=== PATIENT | male | born 1970 | race Caucasian/White ===

== ENCOUNTER 2017-11-23 12:58 | Emergency (ER) | payer OTHER, MEDICAID ==
--- NOTE | 2017-11-23 14:35 | EDPHY ---
H & P Time Seen by Provider: 11/23/17 14:14 HPI/ROS: CHIEF COMPLAINT: Abdominal pain HISTORY OF PRESENT ILLNESS: Patient is a 47-year-old homeless male who presents emergency department left lower quadrant abdominal pain. Patient states his pain is been present for the past 2-3 weeks. His pain radiates to his left flank. He has had no dysuria or frequency. Patient reports subjective fever and chills. The patient saw his primary care physician and was treated with 2 weeks of amoxicillin which did not result symptoms. Patient was concerned because his mother was diagnosed with C diff. He has had nonbloody diarrhea. No previous history of C diff. REVIEW OF SYSTEMS: My complete review of systems is negative except as mentioned in the HPI. Past Medical/Surgical History: Includes RSD, bipolar disorder, coronary artery disease, emphysema, hypothyroidism, TIA Social history: The patient is homeless. The patient smokes daily. Smoking Status: Heavy smoker Physical Exam: 36.8, 135/94, 90, 16, 96% on room air GENERAL: No acute distress, alert. HEENT: Eyes normal to inspection, normal pharynx, no signs of dehydration. NECK: No thyromegaly, no lymphadenopathy, supple. RESPIRATORY: Clear to auscultation bilaterally, no rales, rhonchi or wheezing. CVS: Regular rate and rhythm, no rubs, murmurs, or gallops. ABDOMEN: Soft, mild left lower quadrant tenderness palpation with no rebound or guarding, nondistended, no organomegaly. BACK: Normal to inspection, no CVA tenderness. SKIN: Normal color, no rash, warm, dry. No pallor. EXTREMITIES: No pedal edema, no calf tenderness, no Homans sign or cords, no joint swelling. NEURO/PSYCH: Alert and oriented x3, normal mood and affect, normal motor sensory exam. Constitutional: Initial Vital Signs Temperature (C) 36.8 C 11/23/17 13:07 Heart Rate 90 11/23/17 13:07 Respiratory Rate 16 11/23/17 13:07 Blood Pressure 135/94 H 11/23/17 13:07 O2 Sat (%) 96 11/23/17 13:07 O2 Delivery Mode Room Air Allergies/Adverse Reactions: clonazepam [From Klonopin] Allergy (Verified 11/23/17 13:14) fluticasone [From Flonase] Allergy (Verified 11/23/17 13:14) Home Medications: Medication Instructions Recorded AMOXICILLIN 11/23/17 Cyclobenzaprine 11/23/17 Depakote 11/23/17 Levothyroxine 11/23/17 OLANZapine 11/23/17 Omeprazole 11/23/17 SUMAtriptan 11/23/17 Medical Decision Making - Diagnostics Imaging Results: Imaging Impressions Abdomen/Pelvis CT 11/23/17 14:31 Impression: No acute abdominopelvic process. Findings and recommendations discussed with LEMUEL RAI at 1550 hour, . ED Course/Re-evaluation: In the emergency department I discussed possible etiologies with the patient. I answered all his questions. IV was placed. Laboratory studies were obtained. Patient given normal saline 1 L IV for hydration. Patient's CBC, chemistry and urine were unremarkable. LFTs were normal. CT of the abdomen pelvis: Please refer the dictated report. No acute disease noted. Discussed the results with the patient. On recheck he was doing well. He was sitting in the bed comfortably. Patient will take Tylenol for his discomfort. He is given warnings prior to leaving. He will return with worsening symptoms. Differential Diagnosis: My differential includes but is not limited to colitis, diverticulitis, small- bowel obstruction, perforation, kidney stone, urinary tract infection, pyelonephritis, C diff - Data Points Laboratory Results: Laboratory Results 11/23/17 15:00 11/23/17 15:00 11/23/17 11/23/17 11/23/17 15:00 15:00 15:00 WBC 4.31 10^3/uL 10^3/uL (3.80-9.50) RBC 3.82 10^6/uL L 10^6/uL (4.40-6.38) Hgb 13.7 g/dL g/dL (13.7-17.5) Hct 39.5 % L % (40.0-51.0) MCV 103.4 fL H fL (81.5-99.8) MCH 35.9 pg H pg (27.9-34.1) MCHC 34.7 g/dL g/dL (32.4-36.7) RDW 13.9 % % (11.5-15.2) Plt Count 142 10^3/uL L 10^3/uL (150-400) MPV 10.1 fL fL (8.7-11.7) Neut % (Auto) 36.8 % L % (39.3-74.2) Lymph % (Auto) 47.3 % H % (15.0-45.0) [place] % (Auto) 9.3 % % (4.5-13.0) Eos % (Auto) 4.2 % % (0.6-7.6) Baso % (Auto) 1.9 % H % (0.3-1.7) Nucleat RBC Rel Count 0.0 % % (0.0-0.2) Absolute Neuts (auto) 1.59 10^3/uL L 10^3/uL (1.70-6.50) Absolute Lymphs (auto) 2.04 10^3/uL 10^3/uL (1.00-3.00) Absolute Monos (auto) 0.40 10^3/uL 10^3/uL (0.30-0.80) Absolute Eos (auto) 0.18 10^3/uL 10^3/uL (0.03-0.40) Absolute Basos (auto) 0.08 10^3/uL 10^3/uL (0.02-0.10) Absolute Nucleated RBC 0.00 10^3/uL 10^3/uL (0-0.01) Immature Gran % 0.5 % % (0.0-1.1) Immature Gran # 0.02 10^3/uL 10^3/uL (0.00-0.10) Sodium 140 mEq/L mEq/L (135-145) Potassium 4.2 mEq/L mEq/L (3.3-5.0) Chloride 104 mEq/L mEq/L (97-110) Carbon Dioxide 28 mEq/l mEq/l (22-31) Anion Gap 8 mEq/L mEq/L (8-16) BUN 23 mg/dL mg/dL (7-23) Creatinine 0.8 mg/dL mg/dL (0.7-1.3) Estimated GFR > 60 Glucose 93 mg/dL mg/dL (70-100) Calcium 9.0 mg/dL mg/dL (8.5-10.4) Total Bilirubin 0.3 mg/dL mg/dL (0.1-1.4) Conjugated Bilirubin 0.1 mg/dL mg/dL (0.0-0.5) Unconjugated Bilirubin 0.2 mg/dL mg/dL (0.0-1.1) AST 25 IU/L IU/L (17-59) ALT 20 IU/L L IU/L (21-72) Alkaline Phosphatase 54 IU/L IU/L (38-126) Total Protein 6.4 g/dL g/dL (6.3-8.2) Albumin 3.9 g/dL g/dL (3.5-5.0) Lipase 105 IU/L IU/L (23-300) Urine Color YELLOW Urine Appearance HAZY Urine pH 7.0 (5.0-7.5) Ur Specific [place] 1.026 (1.002-1.030) Urine Protein NEGATIVE (NEGATIVE) Urine Ketones TRACE H (NEGATIVE) Urine Blood NEGATIVE (NEGATIVE) Urine Nitrate NEGATIVE (NEGATIVE) Urine Bilirubin NEGATIVE (NEGATIVE) Urine Urobilinogen NEGATIVE EU EU (0.2-1.0) Ur Leukocyte Esterase NEGATIVE (NEGATIVE) Urine RBC 1-3 /hpf /hpf (0-3) Urine WBC 1-3 /hpf /hpf (0-3) Ur Epithelial Cells TRACE /lpf /lpf (NONE-1+) Urine Mucus TRACE /lpf /lpf (NONE-1+) Urine Glucose NEGATIVE (NEGATIVE) Medications Given: Discontinued Medications Sodium Chloride (Ns) 1,000 mls @ 0 mls/hr IV EDNOW ONE; Wide Open PRN Reason: Protocol Stop: 11/23/17 14:32 Last Admin: 11/23/17 15:00 Dose: 1,000 mls Departure - Departure Disposition: Home, Routine, Self-Care Clinical Impression: Abdominal pain Qualifiers: Abdominal location: left lower quadrant Qualified Code(s): R10.32 - Left lower quadrant pain Condition: Good Instructions: Acute Abdominal Pain (ED) Additional Instructions: Return with increasing abdominal pain, fever, vomiting or any other concerns. This CT of your abdomen and pelvis was unremarkable. Laboratory studies were unremarkable. Referrals: [facility],. [Clinic] - 2-3 days, if not improved
[2017-11-23] MEDS: NS 1,000 ML IV ONE (15:00)
[2017-11-23 15:13] LABS: PLATELET COUNT 142 10^3/uL (150-400)
[2017-11-23 16:05] VITALS: BP 140/97
== END 2017-11-23 16:12 | disposition home or self-care (01) ==
DX: R10.32 Left lower quadrant pain (principal); Z59.0 Homelessness; E86.9 Volume depletion, unspecified

== ENCOUNTER 2017-12-04 16:58 | Emergency (ER) | payer OTHER, MEDICAID ==
--- NOTE | 2017-12-04 17:02 | EDPHY ---
H & P Time Seen by Provider: 12/04/17 17:00 HPI/ROS: CHIEF COMPLAINT: Intoxication HISTORY OF PRESENT ILLNESS: Patient is a 47-year-old man who was found lying in the grass altered. He admits to smoking marijuana and drinking alcohol. He has no pain or complaints at this time other than being woken up. He does not remember the last several hours. No evidence of trauma. He does have some foam in his mouth and states that he has been eating "whoppers". Severity: Moderate Modifying factors: None REVIEW OF SYSTEMS: Constitutional: denies: chills, fever, recent illness, recent injury EENTM: denies: blurred vision, double vision, nose congestion Respiratory: denies: cough, shortness of breath Cardiac: denies: chest pain, irregular heart rate, lightheadedness, palpitations Gastrointestinal/Abdominal: denies: abdominal pain, diarrhea, nausea, vomiting, blood streaked stools Genitourinary: denies: dysuria, frequency, hematuria, pain Musculoskeletal: denies: joint pain, muscle pain Skin: denies: lesions, rash, jaundice, bruising Neurological: Amnesia, denies: headache, numbness, paresthesia, tingling, dizziness, weakness Hematologic/Lymphatic: denies: blood clots, easy bleeding, easy bruising Immunologic/allergic: denies: HIV/AIDS, transplant 10 systems reviewed and negative except as noted EXAM: GENERAL: Well-appearing, well-nourished and in no acute distress. HEAD: Atraumatic, normocephalic. EYES: Pupils equal round and reactive to light, extraocular movements intact, sclera anicteric, conjunctiva are normal. ENT: Small amount of from and mouth, easily wiped away. TMs normal, nares patent, oropharynx clear without exudates. Moist mucous membranes. NECK: Normal range of motion, supple without lymphadenopathy or JVD. LUNGS: Breath sounds clear to auscultation bilaterally and equal. No wheezes rales or rhonchi. HEART: Regular rate and rhythm without murmurs, rubs or gallops. ABDOMEN: Soft, nontender, normoactive bowel sounds. No guarding, no rebound. No masses appreciated. BACK: No CVA tenderness, no spinal tenderness, step-offs or deformities EXTREMITIES: Normal range of motion, no pitting or edema. No clubbing or cyanosis. NEUROLOGICAL: Cranial nerves II through XII grossly intact. Normal speech, normal gait. 5/5 strength, normal movement in all extremities, normal sensation , normal reflexes PSYCH: Appears intoxicated, slightly confused, answers most questions appropriately SKIN: Warm, dry, normal turgor, no visible rashes or lesions. Source: Patient, EMS Exam Limitations: Intoxication - Medical/Surgical History Hx Asthma: Yes Hx Chronic Respiratory Disease: Yes Hx Diabetes: Yes Hx Cardiac Disease: Yes Hx Renal Disease: Yes Hx Cirrhosis: No Hx Alcoholism: No Hx HIV/AIDS: No Hx Splenectomy or Spleen Trauma: No Other PMH: RSD, bipolar, [place] 2015, emphysema, hypothryroid, TIA 10/2017 - Family History Significant Family History: No pertinent family hx - Social History Smoking Status: Heavy smoker Alcohol Use: Heavy Drug Use: Marijuana, Other Constitutional: Initial Vital Signs Temperature (C) 36.5 C 12/04/17 17:06 Heart Rate 97 12/04/17 17:06 Respiratory Rate 18 12/04/17 17:06 Blood Pressure 128/86 H 12/04/17 17:06 O2 Sat (%) 94 12/04/17 17:06 O2 Delivery Mode Room Air Allergies/Adverse Reactions: clonazepam [From Klonopin] Allergy (Verified 11/23/17 13:14) fluticasone [From Flonase] Allergy (Verified 11/23/17 13:14) Home Medications: Medication Instructions Recorded AMOXICILLIN 11/23/17 Cyclobenzaprine 11/23/17 Depakote 11/23/17 Levothyroxine 11/23/17 OLANZapine 11/23/17 Omeprazole 11/23/17 SUMAtriptan 11/23/17 Medical Decision Making ED Course/Re-evaluation: Patient's alcohol Breathalyzer is only 0.089. He denies other ingestion besides marijuana. We will observe and hydrate. The patient remains awake and alert. He is asymptomatic. He is stable ambulating. He does not have any pain and does not feel ill. He does appear intoxicated her high. He is eager to go home and return to his intermediate. Will discharge him at this time. We discussed indications for returning. Differential Diagnosis: Partial list of the Differential diagnosis considered include but were not limited to; polysubstance abuse, head injury and although unlikely based on the history and physical exam, I also considered infection tumor, seizure, withdrawal. I discussed these differential diagnoses and the plan with the patient as well as the usual and expected course. The patient understands that the diagnosis is provisional and that in medicine we are not always correct and that further workup is often warranted. Usual and customary warnings were given. All of the patient's questions were answered. The patient was instructed to return to the emergency department should the symptoms at all worsen or return, otherwise to followup with the physician as we discussed. - Data Points Medications Given: Discontinued Medications Chlordiazepoxide (Librium 25 Mg Prepack#6) 1 btl TAKEHOME EDNOW ONE Stop: 12/04/17 18:06 Last Admin: 12/04/17 18:08 Dose: 1 btl Departure - Departure Disposition: Home, Routine, Self-Care Clinical Impression: Polysubstance abuse Condition: Fair Instructions: Chlordiazepoxide (By mouth), Polysubstance Abuse (ED) Referrals: NONE *PRIMARY CARE P,. [Primary Care Provider] - As per Instructions [facility],. [Clinic] - As per Instructions
[2017-12-04 17:08] VITALS: BP 128/86
[2017-12-04] MEDS ORDERED: CHLORDIAZEPOXIDE 25MG PREPK#6 BTL TAKEHOME ONE ×2 (18:03→18:05)
== END 2017-12-04 18:27 | disposition home or self-care (01) ==
LOC: EDUNIT# → EDBD
DX: F10.129 Alcohol abuse with intoxication, unspecified (principal); F17.200 Nicotine dependence, unspecified, uncomplicated

== ENCOUNTER 2017-12-11 11:04 | Inpatient (IN) | payer OTHER, MEDICAID ==
--- NOTE | 2017-12-11 11:19 | EDPHY ---
H & P Time Seen by Provider: 12/11/17 11:08 HPI/ROS: CHIEF COMPLAINT: Suicidal ideation HISTORY OF PRESENT ILLNESS: Brought on a mental health hold. Was placed on a hold prior to arrival for suicidal ideation wanting to kill himself. Patient says he still has depression and suicidal ideation. Denies overdose or self injury. REVIEW OF SYSTEMS: Eye: no change in vision ENT: no sore throat Cardiac: no chest pain or syncope Pulmonary: no cough or SOB Abdomen: Chronic abdominal pain for the last 2 months, worse with eating. No previous surgeries. Musculoskeletal: no back pain Skin: no rash Neuro: no headache Constitutional: no fever : no urinary symptoms A comprehensive 10 point review of systems is otherwise negative aside from elements mentioned in the history of present illness. PAST MEDICAL HISTORY: Thyroid, bipolar Social history: Denies alcohol, is a chronic tobacco smoker. General Appearance: Alert and conversant, cooperative. Eyes: No scleral icterus. ENT, Mouth: Normal mucous membranes. Respiratory: Normal respiratory effort, breath sounds equal, lungs are clear to auscultation. Cardiovascular: Regular rate and rhythm. Gastrointestinal: Abdomen is soft and non tender. No hernia appreciated, normal male , no rebound or guarding. Neurological: Alert, face symmetric, normal motor and sensory in extremities. Skin: Warm and dry, no rashes. No laceration or abrasions. Musculoskeletal: No peripheral edema. Psychiatric: Depressed affect, suicidal ideation. Emergency Department course/MDM: On a mental health hold. Screening labs to include CBC chemistry lipase and LFTs. Ethanol and drug screen. TSH, Depakote level, aspirin and Tylenol. Lipase and LFTs normal, amphetamine positive. Tylenol aspirin and Depakote negative. 1318: The patient is accepted at [facility] for inpatient psychiatric hospital bed not available at this facility, in stable condition; accepting physician is Dr. Chano Christine. 1453: Discussed with Dr. Herrmann. Will admit to hospital with abdominal pain and elevated TSH for medical stabilization prior to psychiatric admission. The ICU because he is on a mental health hold. Smoking Status: Heavy smoker Constitutional: Initial Vital Signs Temperature (C) 36.6 C 12/11/17 11:04 Heart Rate 66 12/11/17 11:04 Respiratory Rate 14 12/11/17 11:04 Blood Pressure 135/84 H 12/11/17 11:04 O2 Sat (%) 96 12/11/17 11:04 O2 Delivery Mode Room Air Allergies/Adverse Reactions: clonazepam [From Klonopin] Allergy (Verified 12/11/17 14:03) MOOD CHANGE fluticasone [From Flonase] Allergy (Verified 12/11/17 14:03) SWELLING Home Medications: Medication Instructions Recorded Unobtainable 12/11/17 Medical Decision Making Differential Diagnosis: Differential for abdominal pain considered including but not limited to bowel obstruction, appendicitis, diverticulitis, abscess, pancreatitis or hepatitis. - Data Points Laboratory Results: Laboratory Results 12/11/17 11:25 12/11/17 11:25 12/11/17 12/11/17 12/11/17 11:25 11:25 11:15 WBC 7.66 10^3/uL 10^3/uL (3.80-9.50) RBC 3.89 10^6/uL L 10^6/uL (4.40-6.38) Hgb 14.0 g/dL g/dL (13.7-17.5) Hct 40.3 % % (40.0-51.0) MCV 103.6 fL H fL (81.5-99.8) MCH 36.0 pg H pg (27.9-34.1) MCHC 34.7 g/dL g/dL (32.4-36.7) RDW 14.5 % % (11.5-15.2) Plt Count 208 10^3/uL 10^3/uL (150-400) MPV 9.7 fL fL (8.7-11.7) Neut % (Auto) 73.0 % % (39.3-74.2) Lymph % (Auto) 18.0 % % (15.0-45.0) [place] % (Auto) 5.7 % % (4.5-13.0) Eos % (Auto) 2.2 % % (0.6-7.6) Baso % (Auto) 0.8 % % (0.3-1.7) Nucleat RBC Rel Count 0.0 % % (0.0-0.2) Absolute Neuts (auto) 5.59 10^3/uL 10^3/uL (1.70-6.50) Absolute Lymphs (auto) 1.38 10^3/uL 10^3/uL (1.00-3.00) Absolute Monos (auto) 0.44 10^3/uL 10^3/uL (0.30-0.80) Absolute Eos (auto) 0.17 10^3/uL 10^3/uL (0.03-0.40) Absolute Basos (auto) 0.06 10^3/uL 10^3/uL (0.02-0.10) Absolute Nucleated RBC 0.00 10^3/uL 10^3/uL (0-0.01) Immature Gran % 0.3 % % (0.0-1.1) Immature Gran # 0.02 10^3/uL 10^3/uL (0.00-0.10) Sodium 138 mEq/L mEq/L (135-145) Potassium 4.5 mEq/L mEq/L (3.3-5.0) Chloride 106 mEq/L mEq/L (97-110) Carbon Dioxide 27 mEq/l mEq/l (22-31) Anion Gap 5 mEq/L L mEq/L (8-16) BUN 14 mg/dL mg/dL (7-23) Creatinine 0.8 mg/dL mg/dL (0.7-1.3) Estimated GFR > 60 Glucose 86 mg/dL mg/dL (70-100) Calcium 9.1 mg/dL mg/dL (8.5-10.4) Total Bilirubin 0.5 mg/dL mg/dL (0.1-1.4) Conjugated Bilirubin 0.1 mg/dL mg/dL (0.0-0.5) Unconjugated Bilirubin 0.4 mg/dL mg/dL (0.0-1.1) AST 31 IU/L IU/L (17-59) ALT 29 IU/L IU/L (21-72) Alkaline Phosphatase 46 IU/L IU/L (38-126) Total Protein 6.4 g/dL g/dL (6.3-8.2) Albumin 3.9 g/dL g/dL (3.5-5.0) Lipase 120 IU/L IU/L (23-300) TSH 120.000 uIU/mL H uIU/mL (0.465-4.680) Salicylates < 1.0 mg/dL L mg/dL (2.0-20.0) Urine Opiates Screen NEGATIVE (NEGATIVE) Acetaminophen < 10 mcg/mL L mcg/mL (10-30) Urine Barbiturates NEGATIVE (NEGATIVE) Valproic Acid < 10.0 mcg/mL L mcg/mL (50.0-150.0) Ur Phencyclidine Scrn NEGATIVE (NEGATIVE) Ur Amphetamine Screen NON-NEGATIVE H (NEGATIVE) U Benzodiazepines Scrn NEGATIVE (NEGATIVE) Urine Cocaine Screen NEGATIVE (NEGATIVE) U Marijuana (THC) Screen NON-NEGATIVE H (NEGATIVE) Ethyl Alcohol < 10 mg/dL mg/dL (0-10) Medications Given: Discontinued Medications Nicotine (Nicoderm Cq) 21 mg TD EDNOW ONE Stop: 12/11/17 11:21 Last Admin: 12/11/17 12:41 Dose: 21 mg Departure - Departure Disposition: [facility] In[facility] Acute Clinical Impression: Suicidal ideation Bipolar disorder Qualifiers: Active/Remission status: currently active Current bipolar episode type: depressed Current episode severity: severe Psychotic features: without psychotic features Qualified Code(s): F31.4 - Bipolar disorder, current episode depressed, severe, without psychotic features Abdominal pain Qualifiers: Abdominal location: generalized Qualified Code(s): R10.84 - Generalized abdominal pain Condition: Good
[2017-12-11] MEDS ORDERED: NICOTINE 21 MG/24 HR PATCH TD ONE (11:20)
[2017-12-11 11:31] LABS: PLATELET COUNT 208 10^3/uL (150-400)
--- NOTE | 2017-12-11 14:20 | ASMTTCLDSP ---
[facility] Discharge Disposition Disposition: Answers: Admit Discharge Concerns/Recommendations: Notes: In consultation with [facility] ED physician, Rell Pizano MD and on-call psychiatrist, Chano Christine MD, both concurred that pt appears to meet 27-65 criteria requiring psychiatric hospitalization as pt appears to be at risk of harm to self due to a mental illness condition. Pt was given the 3N prohibited belongings list while in the ED. For inpatient Chano Christine MD admission, the following psychiatrist agreed to accept patient for admission to [facility] ([facility]): Type of Hold: Answers: M1/72-hour Hold Hold initiated by: Answers: Police Date Signed: 12/11/2017 02:20 PM Electronically Signed By:Socorro Dawson
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
[2017-12-11] MEDS ORDERED: ZOLPIDEM TARTRATE 5 MG TAB PO PRN (14:45)
[2017-12-11] MEDS ORDERED: LORazepam 2 MG/ML INJ IVP PRN (15:09)
[2017-12-11] MEDS ORDERED: FLUMAZENIL 0.5 MG/5 ML MDV IVP PRN (15:09)
--- NOTE | 2017-12-11 15:09 | PDGENHP ---
History and Physical History and Physical: CC: Suicidal ideation HISTORY: This patient was brought in by police due to suicidal ideation. He has a long history of bipolar disorder and lately has been very depressed and has strong suicidal ideation. He expresses intent but does not yet have a plan. Patient says he has been off of his medicines for bipolar for approximately 1 month. He says he has been unable to get medicine though he has not asked for medicine here in the ER on his last 2 visits and has not sought care at a local clinic. He tells me he was taking Depakote and olanzapine doses uncertain and possibly other medicines. He does drink up to a gal of vodka a day and drinks every day, last drink yesterday. He uses some marijuana denies use of other street drugs, though notably he shows up positive for amphetamines here. Denies any IV drug use In addition the patient says he has been hypothyroid for most of his life and ran out of thyroid medicine 2-3 months ago. Again when asked why he is not taking it now he says because he has not been able to get any. Notably this is his 3rd visit here to the ER in the last 3 weeks. The patient admits to feeling very tired weak sleepy cold and has diffuse abdominal pain. He says he is not eating but not vomiting. He has not noticed any bleeding. 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 Hypothyroidism FAMILY MEDICAL HISTORY: States mother is living in a local nursing facility does not know her condition SOCIAL HISTORY: Homeless, drinking heavily daily, heavy smoker Uses marijuana regularly Denies use of street drugs but his urine drug screen here suggest possibly otherwise MEDICATIONS: Waiting on pharmacy reconciliation of medicine list but the patient basically has run out of all of his medicines and not currently taking any PHYSICAL EXAMINATION: Vital Signs: Normal without fever, heart rate is 66 Executive Manager: Examination: General: Lying on a hospital gurney on his side, sleeping, with the she pulled up over his head, once I call his name he is alert, oriented Psychologic: Patient is calm, cooperative, though does not like to make eye contact, depressed flat affect, no current signs of hallucinations that he shows , does not have pressured speech or bizarre thought content in our current discussion Neurologic: Cranial nerves good, normal speech/language, 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, no focal weakness, no tremor Skin: warm, dry, good color, no rash, no signs of IV drug use HEENT: normal Neck: no mass or jvd Resps: relaxed Lungs: clear breath sounds Heart: regular, no murmur Abdomen: soft, nondistended, nontender, +BS, no mass Upper Extremities: normal Lower Extremities: no edema, warm No Bleeding or bruising IV site: looks normal LABORATORY DATA: TSH greater than 120, I have ordered T3 and T4 which are pending The rest of a comprehensive metabolic panels unremarkable CBC is remarkable for macrocytosis without anemia RADIOLOGY STUDIES: None so far yet 12 LEAD EKG: None so far yet ASSESSMENT: * suicidal ideation with intent in the setting of uncontrolled mental health and medical issues in a homeless man who is alcoholic * bipolar disorder currently with market depressive affect, no signs of thomas or psychosis at the moment; has been off meds for a month or more * hypothyroidism with unmeasurable a high TSH * heavy alcohol use daily up to a gal of vodka; patient expresses history of a sober period up till 4 months ago and wishes at this time to become sober again * suspected methamphetamine use based on urine tox screen though the patient denies this at present * abdominal pain and tenderness likely related to alcohol use but with normal lipase; consider gastritis, other etiologies possible * myocardial infarction reported by patient treated at [facility] in [place] less than 2 years ago * reported history of multiple TIAs The patient is not delirious or psychotic at this time, however some of the details of his history really require further investigation to clarify. Particularly his heart and TIA history as well as whether he is using methamphetamine. If he truly has coronary disease with MT and TIAs, and drinks as heavily as he states, he is at very high risk for complications with institution of thyroid therapy as well as detoxing from alcohol, which is the patient's wish. PLANS: * Of canceled plans for transfer the patient to mental health unit and will admit to inpatient care here * Admission to ICU on M1 hold * Alcohol withdrawal protocol * Begin treatment with levothyroxine at low dose 50 mcg daily and increase over time as tolerated cardiac bolanos * Will try to get records from hospital in [place] where he is treated for his heart disease and TIAs * Thiamine replacement therapy * Will need definitive assessment and therapy for suicidal ideation and untreated depressive phase of bipolar disorder with history of thomas I have reviewed the patient's case in detail with Dr. Rell montelongo I have reviewed the patient's past medical records as part of this assessment, including previous ER visit records here including physicians notes and lab data
[2017-12-11] MEDS: ONDANSETRON 4 MG/2 ML VIAL IVP PRN ×2 (17:01→20:58)
[2017-12-11] MEDS: LEVOTHYROXINE 50 MCG TAB PO SCH (17:02)
[2017-12-11] MEDS: THIAMINE HCL 100 MG TAB PO SCH ×2 (18:32→20:59)
[2017-12-11] MEDS: LORazepam 1 MG TAB PO PRN (20:59)
[2017-12-11] MEDS: FAMOTIDINE 20 MG TAB PO SCH (20:59)
[2017-12-11] MEDS ORDERED: MELATONIN 3 MG TAB PO SCH (21:00)
[2017-12-12] MEDS: ACETAMINOPHEN 325 MG TAB PO PRN ×3 (01:59→16:50)
[2017-12-12] MEDS: LORazepam 1 MG TAB PO PRN (01:59)
[2017-12-12] MEDS ORDERED: MULTIVITAMINS 1 EACH TAB PO SCH (09:00)
[2017-12-12] MEDS ORDERED: ENOXAPARIN 40 MG/0.4 ML SYR SC SCH (09:00)
[2017-12-12] MEDS ORDERED: NICOTINE 21 MG/24 HR PATCH TD SCH (09:00)
--- NOTE | 2017-12-12 09:19 | ASMTLACE ---
FREDDY Acuity / Level of Answers: Yes Care: Did the patient have an inpatient admission? Comorbidities - select Answers: Cerebrovascular disease all that apply (CVA, TIA, aneurysms, vasc ular dementia) Chronic pulmonary disease Previous myocardial infarction Other Notes: Hypothyroid # of Emergency department Answers: 3-4 visits in the last 6 months Social determinants Answers: History of substance abuse (ETOH, street drugs, prescription drugs, etc.) Homelessness (street, senior living) Mental health diagnosis (anxiety, depression, pers onality disorders, etc.) Score: 20 Date Signed: 12/12/2017 09:18 AM Electronically Signed By:Raine Gamez
[2017-12-12] MEDS: THIAMINE HCL 100 MG TAB PO SCH (09:40)
[2017-12-12] MEDS: FAMOTIDINE 20 MG TAB PO SCH (09:40)
--- NOTE | 2017-12-12 10:04 | PDMN ---
Medical Necessity Medical necessity: Pt on M1 Hold, meets IP criteria; est los >2 mn for eval/tx of suicidal ideation w/intent in the setting of uncontrolled mental health & medical issues; admit to ICU for close monitoring, safety, CIWA protocol & med management; hx bipolar disorder, IN, TIAs, COPD, hypothyroidism, homelessness, alcoholism & suspected meth use; per H&P & order 12/11/17
[2017-12-12] MEDS: LEVOTHYROXINE 50 MCG TAB PO SCH (12:23)
[2017-12-12] MEDS ORDERED: PNEUMOCOCCAL 0.5ML VACCINE VIAL IM ONE (13:00)
[2017-12-12 16:53] VITALS: BP 125/89
--- NOTE | 2017-12-12 17:05 | ASMTDCNOTE ---
Case Management Discharge Discharge Order Complete? Answers: Yes Patient to Obtain Answers: Other Notes: [facility] Behavior [facility] Medications Transportation Arranged Answers: [facility] will Pick (Date 12/12/2017 07:00 PM & Time) EMTALA Complete Answers: Yes Case Management Transport Answers: Yes Form Complete Faxed Final Orders Answers: No Notes: Originals sent w/patien t Discharge Comments Notes: Patient has been discharged to [facility] Behavior th Date Signed: 12/12/2017 05:05 PM Electronically Signed By:Kaylyn Curtis LCSW
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
--- NOTE | 2017-12-12 20:14 | PDDCSUM ---
Discharge Summary Discharge Summary: Date of Admission: 12/11/2017 Date of Discharge: 12/12/2017 Disposition: inpatient behavioral health at [facility] Consultants: psychiatry Procedures: none Discharge Diagnoses: 1. Suicidal ideation 2. Severe hypothyroidism 3. Bipolar d/o, depression 4. EtOH abuse 5. Possible amphetamine use 6. Homelessness 7. Reported h/o CAD and TIAs Brief Hospital Course by Problem: 1. Suicidal ideation: M1 hold placed in ED. No plan or attempt. Discharge to inpatient psych after medically stabilized. 2. Severe hypothyroidism: TSH>120, free T4 and T3 low. He was previously on 150mcg daily but stopped taking his medications. Certainly contributing to his depression. Started on 50mcg synthroid daily (not weight based given his cardiac history). Plan to increase to 75mcg in 2 weeks then 100mcg in 4 weeks and recheck thyroid studies in 6 weeks. 3. Bipolar disorder: Has been off his depakote and olanzapine for at least several weeks; he was unable to refill these. Very flat affect. He was not manic. Defer restarting to psych. 4. EtOH abuse: Was not in withdrawal. 5. Utox + for amphetamine. He denied using. 6. Homelessness: Recent development. Was living with mother but now she is in [facility]. 7. Reported CAD, TIAs: Do not have these records. He reports IA 2 years ago treated at [facility] but denies getting any coronary stenting. I restarted his aspirin and atorvastatin which he reports previously being on. Medications: Please refer to EMR for complete list. Additions this hospitalization include aspirin and atorvastatin. Follow Up Plan: 1. Discharged to inpatient psychiatry 2. Increase levothyroxine from 50 to 75mcg in 2 weeks, then to 100mcg in 4 weeks and recheck thyroid studies in 6 weeks. 2. Recommend re-establishing with PCP so he can get refills on thyroid medications and statin/aspirin Physical Exam: Vitals reviewed and stable with no significant bradycardia. Alert and oriented. Very flat affect. RRR on cardiac exam, lungs clear, no edema , abdomen soft and non-tender. Non-focal neurologic exam.
[2017-12-13] MEDS ORDERED: ASPIRIN EC 81 MG TAB PO SCH (09:00)
[2017-12-13] MEDS ORDERED: ATORVASTATIN CALCIUM 40 MG TAB PO SCH (09:00)
== END 2017-12-12 20:47 | DRG 880 ==
LOC: EDUNIT# → EEVIPCON 14:42 → F2N 16:07
PROVIDERS: ADMIT Internal Medicine; ATTEND Internal Medicine
DX: R45.851 Suicidal ideations (principal); F31.9 Bipolar disorder, unspecified; E03.9 Hypothyroidism, unspecified; F10.239 Alcohol dependence with withdrawal, unspecified; F15.10 Other stimulant abuse, uncomplicated; I25.10 Atherosclerotic heart disease of native coronary artery without angina pectoris; I25.2 Old myocardial infarction; F17.210 Nicotine dependence, cigarettes, uncomplicated; Z59.0 Homelessness; Z86.73 Personal history of transient ischemic attack (TIA), and cerebral infarction without residual deficits
CPT/HCPCS: 80305; 84481-90; G0008; G0009; G0480; J1650; J2060; J2405

== ENCOUNTER 2017-12-12 21:04 | Inpatient (IN) | payer OTHER, MEDICAID ==
[2017-12-12] MEDS ORDERED: NICOTINE POLACRILEX 2 MG GUM B PRN (22:00)
[2017-12-12] MEDS ORDERED: MAGNESIUM HYDROXIDE 30 ML UDCUP PO PRN (22:00)
[2017-12-12] MEDS ORDERED: LORazepam 0.5 MG TAB PO PRN (22:00)
[2017-12-12] MEDS ORDERED: MAG HYDROX/AL HYDROX/SIMETH 30 ML UDCUP PO PRN (22:00)
[2017-12-12] MEDS ORDERED: MELATONIN 3 MG TAB PO PRN (22:17)
[2017-12-12] MEDS ORDERED: OLANZapine 5 MG TAB PO PRN (22:21)
[2017-12-13] MEDS: ACETAMINOPHEN 325 MG TAB PO PRN ×3 (00:51→18:29)
[2017-12-13] MEDS: LEVOTHYROXINE 50 MCG TAB PO SCH (06:04)
[2017-12-13] MEDS: NICOTINE 21 MG/24 HR PATCH TD SCH (08:41)
[2017-12-13] MEDS: MULTIVITAMINS 1 EACH TAB PO SCH (08:41)
[2017-12-13] MEDS: ATORVASTATIN CALCIUM 40 MG TAB PO SCH (08:41)
[2017-12-13] MEDS: ASPIRIN 81 MG CHEWABLE TAB PO SCH (08:41)
[2017-12-13] MEDS: FAMOTIDINE 20 MG TAB PO SCH ×2 (08:41→20:41)
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
--- NOTE | 2017-12-13 16:22 | PDMN ---
Medical Necessity Medical necessity: Pt meets IP criteria per & ROCIO B-[id number]; est los >2 mn for eval/tx of substance-induced psychotic disorder & suicidal ideations; pt on M1 hold due to risk of harm to self; admit for further monitoring, safety & med management; per H&P & order 12/12/17
--- NOTE | 2017-12-13 17:58 | ASMTBHMTP ---
Master Treatment Plan Master Treatment Plan Answers: Depressed Mood with for: Suicidal Ideation Date: 12/13/2017 Diagnosis on Admission: Bipolar Disorder F31.9 Expected length of stay: 5-7 Reason for admission: Notes: Ct. came in after MOC alerted police that he was suicidal. Patient's stated presenting problems: Notes: "Get back on my feet". Ct. reported that he became homeless after he and his mom were evicted from their home. MOC was placed in [facility]. Ct. relapsed and started drinking and smoking weed. Ct. spends the days with his mom and is on the streets at night. Patient's goals for treatment: Notes: "Get stable again. Try to get some housing". Patient's strengths: Notes: "I got a lot of pride in myself". Identify supports outside of hospital: Notes: MOC Discharge criteria: Notes: SI will resolve and patient will have a plan to safely manage recurrent suicidal ideation. Initial disposition plan/considerations: Notes: Refer to [facility]. Master Treatment Plan Required Signatures Psychiatrist signature: Answers: Psychiatrist: RN on-shift signature: Answers: RN: Patient signature: Answers: Patient: Date Signed: 12/13/2017 11:23 AM Electronically Signed By:Phuong Knowles
--- NOTE | 2017-12-13 18:04 | ASMTCMCOM ---
CM Note CM Note Notes: CC met with ct. to develop MTP. Ct. reported that he has been homeless for several months after being evicted from his home. He spends the days with his mother at [facility] and the nights on the street. He reported that he relapsed on ETOH and MJ. He doesn't have MH providers at this time but agreed to sign a FUAD for [facility]. Date Signed: 12/13/2017 11:27 AM Electronically Signed By:Phuong Knowles
[2017-12-13] MEDS: DIVALPROEX ER 500 MG TAB PO SCH (20:41)
[2017-12-13] MEDS: OLANZapine DISINTEGR 10 MG TAB PO SCH (20:41)
[2017-12-14] MEDS: LEVOTHYROXINE 50 MCG TAB PO SCH (06:00)
[2017-12-14] MEDS: ATORVASTATIN CALCIUM 40 MG TAB PO SCH (08:45)
[2017-12-14] MEDS: ASPIRIN 81 MG CHEWABLE TAB PO SCH (08:45)
[2017-12-14] MEDS: FAMOTIDINE 20 MG TAB PO SCH ×2 (08:45→20:25)
[2017-12-14] MEDS: MULTIVITAMINS 1 EACH TAB PO SCH (08:45)
[2017-12-14] MEDS: NICOTINE 21 MG/24 HR PATCH TD SCH (08:45)
[2017-12-14] MEDS: ACETAMINOPHEN 325 MG TAB PO PRN (08:50)
--- NOTE | 2017-12-14 09:19 | SOAPPROG ---
SOAP Progress Note Assessment/Plan: Assessment: Bipolar I Disorder, severe, most recent thomas. Cannabis use disorder, severe, in controlled environment. Stimulant-use disorder, severe, in controlled environment. Alcohol Use Disorder, severe, in controlled environment, Homelessness. Improvement noted. (see subjective/objective note). Patient could benefit from continued inpatient hospitalization for crisis stabilization , safety, and medication evaluation. Plan: (1) Psychotropic medications: After reviewing options, risks, and benefits patient agrees to continue current medications. No medication changes at this time as more time is needed to determine ongoing tolerability and efficacy. Plan is to continue to observe patient for response and side effects from medications, and ongoing monitoring and evaluation. (2) Review with patient informed consent and recommendations for psychotropic medication treatment listed below (3) Labs: no additional labs at this time (4) Therapy: continue milieu and group therapy (5) Further investigation including gathering information from patients relatives and review of past case records to inform treatment plan. (6) Safety/Wellness plan and follow-up outpatient appointments to be established prior to discharge. Next steps are for patient to meet with pharmacist critical care to plan a safe discharge plan and establish outpatient services for ongoing treatment. (7) Confer with inpatient treatment team regarding treatment plan. (8) Legal status: M1, to sign in voluntary when M1 expires (9) Consider discharge next week if patient is in stable condition, safe, and has a safe discharge plan. (10) Substance abuse interventions: cannabis and alcohol abuse/binge drinking PSYCHOTROPIC MEDICATION TREATMENT INFORMED CONSENT and RECOMMENDATIONS: Review nature of condition, diagnosis, and prognosis. Review nature and purpose of psychotropic medication treatment. Review type of psychotropic medications being ordered. Review risk and benefits of psychotropic medication treatment. Review probable length of time patient will need to take medications. Review risk and benefits of not undergoing psychotropic medication treatment. Review alternative treatments to psychotropic medications. Review psychotropic medications contraindications, drug-drug interactions, side effects, and importance of reporting any side effects to a psychiatric provider or nurse during inpatient hospitalization, and upon discharge to patients psychiatric outpatient provider, primary care provider, or other health care process manager. Review importance of asking a nurse, psychiatric provider, or primary care provider any questions or problems concerning the psychotropic medications. Verify patient understands the information that has been provided, and understands, accepts, and agrees to psychotropic medications. Review patients safety plan and importance of patient to report to staff while hospitalized if patient is ever a danger to self/others, or unable to care for self, and upon discharge, the importance for patient to contact [facility] or [facility], or go to the nearest emergency room, if patient is ever a danger to self/others, or unable to care for self. Recommend that upon discharge patient establish medication management treatment with a psychiatric provider, establishes routine therapy appointments, and follow-up with primary care provider. Verify patient understands and agrees to these recommendations. 12/14/17 10:46 Subjective: Following up with patient for evaluation of psychosis, thomas, and safety. Patient reports, "Feeling better, got some rest, olanzapine and Depakote really helped." Patient expresses the following psychiatric symptoms "tired right now. " Patient expresses no psychiatric symptoms. Patient reports taking medications as prescribed, and describes response to medications as good. Patient does not report undesirable side effects from the medications. Patient reports appetite as not good, and reports eating all meals. Patient describes getting 8 hours of sleep. Patient reports he went to the meditation group last night, states the group mellowed him out. Patient requests assistance getting back into the homeless senior living. Patient reports [facility] is full based on what he was told by his mother. Patient reports he is not depressed, and denies SI. Patient states he would appreciate assistance with housing as he does not want to be on the streets. Patient reports he would like to stay in the [place] area after discharge. Objective: Vital Signs Temp Pulse Resp BP Pulse Ox 36.4 C 82 16 98/66 L 93 12/14/17 00:30 12/14/17 00:30 12/14/17 00:30 12/14/17 00:30 12/14/17 00:30 NURSING REPORT: Consulted with nursing for update on patients progress in treatment. Nurses report patient is engaged in treatment, is attending groups, slept 8 hours, expresses the following psychiatric symptoms: moderate anxiety; exhibits the following psychiatric symptoms: anxious; is eating all meals, is attending to ADLs, is taking medications as prescribed with no report of side effects, with no s/s of EPS/akathisia, and denies SI/HI, denies A/V hallucinations, and denies delusions. MAILING SPECIALIST UPDATE: currently working to set-up OP services. TREATMENT TEAM MEETING: met with patient and treatment team to review patient's treatment and discharge plan. SUBSTANCE ABUSE BRIEF INTERVENTION: Brief intervention regarding the risks of cannabis abuse, methamphetamine, and alcohol/binge drinking is provided to patient with goal to reduce the risk of harm that could result from the continued use of cannabis, alcohol, and methamphetamine with the general aim to investigate the problem, raise awareness of problem, develop a solution with the patient, recommend a specific change or activity, and motivate the patient toward change. Assess substance abuse behavior and give supportive advice about harm reduction, recommend a reduction in hazardous/at-risk consumption patterns, and facilitate referrals for additional specialized treatment with field care advocate. Intermediate goal is for the patient to quit use of cannabis and attend OP substance abuse treatment; groups and individual therapy. Intervention focus on intermediate goals to allow for more immediate success in the treatment process to keep the patient motivated. Review following with patient: Cannabis use risks: Short-term use: impaired short-term memory, impaired motor coordination, altered judgement, in high doses paranoia and psychosis. Long-term use addiction, diminished life satisfaction and achievement, symptoms of chronic bronchitis, and increased risk of chronic psychosis disorders if predisposition to such disorders. In withdrawal anger, aggression irritability, anxiety and nervousness, decreased appetite or weight loss, restlessness, and sleep difficulties with strange dreams. Alcohol/Binge Drinking risks: short-term: injuries, violence, alcohol poisoning, risky sexual behaviors. Long-term: high blood pressure, stroke, liver disease, digestive problems, cancer, learning and memory problems, depression and anxiety, social problems, and alcohol dependence. Methamphetamine use risks: Short-term: insomnia, irritability, aggressive behavior, hallucinations, delusions, intellectual deficits, anxiety, depression, convulsions, damage to blood vessels in the brain causing strokes, high fevers, collapse of the circulatory system. Long-term: damage to nerve pathways, maybe irreversibly; overstimulation to dopamine impairing dopamine transport and reducing efficiency of dopamine receptors, the reward system becomes worn out, leading to inability to experience pleasure for years. MSE: The patient is a well-nourished male looking stated chronological age. Attire is appropriate and dress is casual. Grooming status is appropriate and neat and clean. Ambulation is independent. Gait is normal and coordinated. Posture is normal and relaxed. Eye contact is appropriate, and adequate. Motor activity is appropriate, movements are coordinated; with no involuntary movements. Attitude is cooperative and friendly. Patient appears attentive and relates well to this interviewer. Language production is spontaneous. R/R/ V normal. Articulation is clear. Patient reports mood as good with appropriate affect. Patients thought process is linear and logical with no signs of formal thought disorder. Associations are connected. Patient does not report suicidal/homicidal thoughts, ideas, or plans. Patient denies auditory, visual hallucinations. Patient denies delusions. Patient does not appear to be attending to internal stimuli. Patients attention and concentration are adequate. Patient is oriented to person, place, time, and situation. Patients insight and judgement are poor. No evidence of gross cognitive dysfunction at any point during the interview. No evidence of apparent dysfunction in recent or remote memory. - Time Spent With Patient Time Spent With Patient: 25 minutes, met with patient individually and with patient and treatment team. - Pending Discharge Pending Discharge Within 24 Hours: No Pending Discharge Within 48 Hours: No ICD10 Worksheet Patient Problems: Problems Problem Status Onset Alcohol use disorder, severe, in controlled environment Acute Cannabis use disorder, severe, in controlled environment Acute Homelessness Acute Nicotine dependence with withdrawal Acute Non-adherence to medical treatment Acute Stimulant use disorder Acute
--- NOTE | 2017-12-14 14:37 | ASMTCMCOM ---
CM Note CM Note Notes: The patient participated in clinical treatment team rounds. His speech was at times irrelevant and nonsensical. He was otherwise appropriate, calm, and cooperative. He reported feeling like he was "always staying up" prior to admission because he had to "keep it going...walking" indicating that this was less dangerous. The patient is most concerned with housing support upon discharge. Date Signed: 12/14/2017 02:09 PM Electronically Signed By:Ilene Núñez
[2017-12-14] MEDS: DIVALPROEX ER 500 MG TAB PO SCH (20:25)
[2017-12-14] MEDS: OLANZapine DISINTEGR 10 MG TAB PO SCH (20:25)
[2017-12-15] MEDS: LEVOTHYROXINE 50 MCG TAB PO SCH (06:08)
[2017-12-15 06:43] VITALS: BP 110/73
[2017-12-15] MEDS: FAMOTIDINE 20 MG TAB PO SCH (09:05)
[2017-12-15] MEDS: ASPIRIN 81 MG CHEWABLE TAB PO SCH (09:05)
[2017-12-15] MEDS: MULTIVITAMINS 1 EACH TAB PO SCH (09:05)
[2017-12-15] MEDS: ATORVASTATIN CALCIUM 40 MG TAB PO SCH (09:05)
[2017-12-15] MEDS: NICOTINE 21 MG/24 HR PATCH TD SCH (09:05)
--- NOTE | 2017-12-15 12:12 | BDS ---
REASON FOR ADMISSION: From the ED note dated 12/11/2017, the patient was brought to the ED on a mental health hold. The patient was placed on a hold prior to arrival at the ED for suicidal ideation, wanting to kill himself. The patient states in the ED, that he is still depressed and suicidal. The patient denied overdose or self-injury. The patient's drug screen in the ED was positive for amphetamine and was positive for THC. From the history and physical dated 12/11/2017, the patient was brought in by police due to suicidal ideation. The patient has a long history of bipolar disorder and reports lately feeling very depressed with strong suicidal ideation. The patient expressed intent, but did not report a plan in the ED. The patient reports he has been off his medicines for bipolar for approximately 1 month. The patient reported taking Depakote and olanzapine. However, was uncertain of the doses. The patient reports drinking up to a gallon of vodka a day and drinks every day and last drank on 12/10/2017. The patient reported using marijuana. Notably, the patient shows up positive for amphetamines at the ED, the patient denied IV drug use, suspected methamphetamine use based on urine tox screen, though the patient denied methamphetamine use prior to presenting to the ED. The patient was admitted involuntarily on an M1 hold due to being danger to self and was admitted for safety crisis stabilization and medication evaluation. ADMITTING DIAGNOSES: 1. Bipolar disorder. 2. Stimulant use disorder. 3. Stimulant induced psychotic disorder. 4. Cannabis use disorder, severe. 5. Alcohol use disorder, severe. 6. Nonadherence to medical treatment. 7. Nicotine dependence with withdrawal. 8. Homelessness. 9. Suicidal ideation. ADMISSION PHYSICAL EXAM: The patient was seen for a history and physical on 01/2018, for medical clearance for inpatient psychiatric hospitalization. The patient was medically cleared for inpatient psychiatric hospitalization and treatment. For further details, please refer to history and physical dated 01/2018. ADMISSION LABS: CBC from 12/11/2017, within normal limits except red blood cells were low at 3.89, MCV was elevated at 103.6, and MCH was elevated at 36.0. Chemistry from 12/12/2017, sodium was low at 134, anion gap was low at 6. Liver function from 12/11/2017, within normal limits. Fasting lipid panel from 12/11/2017, within normal limits except LDL cholesterol calculated was low at 64, non-HDL cholesterol was low at 85. TSH from 12/11/2017, was elevated at 120.000. Free T4 was low at 0.25 and free T3 was low at 0.59. Urinalysis from 11/23/2017, was within normal limits except trace of urine ketones. The ketones were elevated. Toxicology screen from 12/11/2017, non-negative for amphetamines, non-negative for marijuana, negative for all other substances of abuse and negative for ethyl alcohol. Patient has history of presenting to [facility] ED positive for amphetamines and THC. MAJOR PROCEDURES OR TESTS: None. HOSPITAL COURSE: The most prominent symptoms and behaviors while the patient was here were irritability and moderate anxiety. The patient was at times agitated. The patient was withdrawn to room and patient slept for most of the first day upon admission. Treatment modalities utilized were milieu and group therapy, olanzapine 10 mg p.o. at bedtime was continued to target mood symptoms , was tolerated with no report of side effects and with good response. Depakote ER 1500 mg p.o. at bedtime was started to target mood symptoms, was tolerated with no report of side effects and with good response. The patient was reported to have a history of bipolar disorder. The patient reported not sleeping for several days prior to admission. Bipolar disorder was likely complicated by the use of substances including marijuana and suspected methamphetamine use. The patient's mood stabilized after a short period of time receiving medications and getting rest. Patient reported being up for several days prior to admission, and then slept major of the first day of admission likely withdrawing from recent use of methamphetamine. After getting rest and started on Depakote and olanzapine, patient's mood improved quickly. Patient has not reported any psychiatric symptoms since presenting to the ER. Patient denied depressive symptoms during interview yesterday, and patient denied depressive symptoms prior to discharge today. The patient has improved considerably with no signs of psychiatric symptoms and no psychiatric symptoms expressed at time of discharge. The patient reports he has improved since admission. States to be in stable condition. Feels safe to discharge and he contracts for safety. Patient's response to treatment was good. There were no adverse or unexpected results of treatment. The patient was safe throughout his stay, active in treatment. Patient attended and engaged in groups, and the patient was appropriate with staff and other patients throughout his stay. The treatment team consensus is the patient is in stable condition and is safe to discharge today. Patient denied SI when interviewed by this STICKER HAND and patient denied SI when interviewed by lpn care manager prior to discharge. CONDITION AT DISCHARGE: Patient is in stable condition and is no longer a danger to self or others, and is not gravely disabled due to mental illness. Patient is no longer in need of inpatient level of care, and can be safely and effectively treated within the community. The patients level of risk at time of discharge is low based on suicide assessment below. MSE: The patient is casually dressed and with good hygiene, and looks stated age. Patient is sitting, posture is upright, and position is relaxed. Patient appears awake, alert, and responds appropriately and reasonably during interview. Patient is engaged, relates well to interviewer, and emotional facial expression is appropriate to situation and changes appropriately with topic. Patient is cooperative, makes comfortable eye contact, and movements are voluntary, deliberate, coordinated, and smooth and even with no inappropriate movements. Patient makes laryngeal sounds effortlessly and shares conversation appropriately; pace of conversation is appropriate, and stream of talking is fluent; articulation is clear and understandable; word choice is effortless and appropriate for education level; completes sentences, occasionally pausing to think; rate and volume are appropriate for interview and setting. Patient reports mood as euthymic. Patients affect is stable with full variable range, congruent with mood, and appropriate to speech and circumstances. Patient has linear and logical thinking, with no loose associations, tangential thought, thought blocking, concrete thinking, or any other signs of formal thought disorder. Patient denies suicidal and homicidal ideation, and denies hallucinations and delusions. Patient appears to be a reliable historian with sound judgement and good insight into current condition. Patient has no apparent dysfunction in recent or remote memory noted, and no evidence of gross cognitive dysfunction noted at any point during the interview. DISCHARGE DIAGNOSES: 1. Bipolar disorder. 2. Stimulant use disorder. 3. Stimulant induced psychotic disorder. 4. Cannabis use disorder, severe. 5. Alcohol use disorder, severe. 6. Nonadherence to medical treatment. 7. Nicotine dependence with withdrawal. 8. Homelessness. CURRENT MEDICATIONS: After reviewing options, risks, and benefits, the patient requests prescriptions at time of discharge for the following medications: Depakote ER 1500 mg p.o. at bedtime, the patient was provided a prescription for 30 days; Zyprexa up 10 mg p.o. at bedtime, the patient was provided a prescription for 30 days; Lipitor 40 mg p.o. daily, the patient was provided a prescription for 30 days; Synthroid 50 mcg p.o. daily at 0600, patient was provided a prescription for 30 days; nicotine 21 mg TD daily, the patient was provided a prescription for 30 days. At the time of discharge, the prescriptions were reviewed with the patient by this STICKER HAND to ensure accuracy and patient understanding. DISPOSITION: Patient left hospital independently and voluntarily and plans to stay at the homeless senior care in [place] this evening. FOLLOWUP: At time of discharge, the patient's Depakote prescription is reviewed with him. Patient agrees to continue at current dose of Depakote ER 1500 mg p.o. at bedtime, and agrees to valproic acid level to be drawn on an outpatient basis. The patient is provided with an appointment at [facility] on 12/22/2017, at 11:45. An order for the valproic acid is sent with the patient and is also faxed to [facility]. Patient was walked to [facility], accompanied by RN, to walk-in appointment at [facility] to establish outpatient appointments for medication management and therapy. visual merchandising coordinator reports the appropriate outpatient follow-up services have been established and outpatient appointments have been scheduled. The patient received written instructions with times and dates of outpatient follow-up appointments. The following follow-up recommendations were provided to the patient at discharge: Continue psychotropic medications as prescribed and attend appointments as scheduled. Report any side effects to a psychiatric outpatient provider, a primary care provider, or other health child care specialist. Address any questions or problems concerning the psychotropic medications with a psychiatric outpatient provider, a primary care provider, or other health child care specialist. Contact [facility] or [facility], or go to the nearest emergency room, if you are ever a danger to yourself/others, or unable to care for yourself. As soon as possible, establish a routine medication management treatment with a psychiatric provider, establish routine therapy appointments, and follow-up with a primary care provider. SUBSTANCE ABUSE BRIEF INTERVENTION: Brief intervention regarding the risks of cannabis, methamphetamine, and alcohol abuse is provided to patient with goal to reduce the risk of harm that could result from the continued use of cannabis , methamphetamine, and alcohol with the general aim to investigate the problem, raise awareness of problem, develop a solution with the patient, recommend a specific change or activity, and motivate the patient toward change. Assess substance abuse behavior and give supportive advice about harm reduction, recommend a reduction in hazardous/at-risk consumption patterns, and facilitate referrals for additional specialized treatment with lpn care manager. Intermediate goal is for the patient to quit use of substances and attend a both NA and AA meeting. Intervention focus on intermediate goals to allow for more immediate success in the treatment process to keep the patient motivated. Review following with patient: Cannabis use risks: Short-term use: impaired short-term memory, impaired motor coordination, altered judgement, in high doses paranoia and psychosis. Long-term use addiction, diminished life satisfaction and achievement, symptoms of chronic bronchitis, and increased risk of chronic psychosis disorders if predisposition to such disorders. In withdrawal anger, aggression irritability, anxiety and nervousness, decreased appetite or weight loss, restlessness, and sleep difficulties with strange dreams. Alcohol/Binge Drinking risks: short-term: injuries, violence, alcohol poisoning, risky sexual behaviors. Long-term: high blood pressure, stroke, liver disease, digestive problems, cancer, learning and memory problems, depression and anxiety, social problems, and alcohol dependence. Methamphetamine use risks: Short-term: insomnia, irritability, aggressive behavior, hallucinations, delusions, intellectual deficits, anxiety, depression , convulsions, damage to blood vessels in the brain causing strokes, high fevers , collapse of the circulatory system. Long-term: damage to nerve pathways, maybe irreversibly; overstimulation to dopamine impairing dopamine transport and reducing efficiency of dopamine receptors, the reward system becomes worn out, leading to inability to experience pleasure for years. After brief intervention, patient states he plans to no longer use substances or alcohol and plans to establish outpatient services for substance abuse treatment. Patient provided referrals at time of discharge. NICOTINE DEPENDENCE: patient provided prescription of Nicotine patch 21 mg TD [id number] prior to discharge for 30 days. LEGAL COURSE: The patient was admitted on an M1 hold for involuntary inpatient psychiatric hospitalization. The patient became voluntary during his stay. Patient requested to discharge this morning and no longer met criteria for inpatient psychiatric hospitalization as he was no longer a danger to himself, was not a danger to others, and was not gravely disabled due to a mental illness. The patient discharged today independently and voluntarily with plans to go to [facility] immediately following discharge to set-up outpatient services at [facility] walk-in appointment. ATTITUDE AT TIME OF DISCHARGE: The patient reports "I am ready to discharge. I would like to get back to work. 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 I plan to follow up there later today. I plan on staying in the [place] area after leaving. I do feel safe to discharge today. Just needed to get back on my meds, and get some rest. I would like to discharge this morning." The patients attitude was positive at time of discharge, and patient reports looking forward to discharging today. The patient reports he feels safe to discharge, is no longer a danger to himself or others, is in stable condition, and contracts for safety. Patient states he will continue medications as prescribed, and establish medication management treatment with an outpatient provider after discharge. Patient reports he understands the information that has been provided to him, and he understands, accepts, and agrees to psychotropic medications. Patient describes internal protective factors as the coping skills he has learned while hospitalized here, and he plans to continue to practice these coping skills after discharge. Patient describes looking forward to having a place to stay after discharge. Patient describes future plans as getting a job at [employer], and he plans to follow-up with his friend that works there later today. LABS AND STUDIES: There were no pending labs or studies at time of discharge. The patient agrees to follow up on an outpatient basis for a valproic acid level. ADVANCED DIRECTIVES: There were no advance directives on file, and the patient was full code during this hospitalization. The following psychotropic medication treatment informed consent and recommendations were provided to the patient at time of discharge. Patient reports he understands, accepts, and agrees to the information that has been provided. PSYCHOTROPIC MEDICATION TREATMENT INFORMED CONSENT and RECOMMENDATIONS: Review nature of condition, diagnosis, and prognosis. Review nature and purpose of psychotropic medication treatment. Review type of psychotropic medications being prescribed. Review risk and benefits of psychotropic medication treatment. Review probable length of time will need to take medications. Review risk and benefits of not undergoing psychotropic medication treatment. Review alternative treatments to psychotropic medications. Review psychotropic medications contraindications, side effects, and importance of reporting any side effects to a psychiatric provider, primary care provider, or other health child care specialist. Review importance of her asking a psychiatric provider or primary care provider any questions or problems concerning the psychotropic medications. Review safety plan and the importance to contact [facility] or [facility] , or go to the nearest emergency room, if ever a danger to yourself/others, or unable to care for yourself. Recommend upon discharge to establish routine medication management treatment with a psychiatric provider, establish routine therapy appointments, and follow-up with a primary care provider. Verify patient understands, accepts, and agrees to the information that has been provided. SUICIDE ASSESSMENT FIVE-STEP EVALUATION AND TRIAGE (1) RISK FACTORS: (a) Suicidal behavior: patient reports history of 2 prior attempts by overdose (b) Current/past psychiatric disorders: bipolar I disorder, substance-induced psychosis, stimulant use disorder, cannabis use disorder, alcohol use disorder, homelessness (c) Chávez symptoms: patient expresses no psychiatric symptoms at discharge, patient exhibits no psychiatric symptoms at discharge (d) Family history: none (e) Precipitants/Stressors/Interpersonal: none (f) Change in treatment: discharge from psychiatric hospital (g) Access to firearms: none (2) PROTECTIVE FACTORS: (a) Internal: coping skills learned while hospitalized (b) External: future goal of getting a job at [employer] (3) SUICIDAL INQUIRY: (a) Ideation: none; patient denies SI to this STICKER HAND and to CC at time of discharge ; last SI reported was prior to admission (b) Plan: none (c) Behaviors: none; patient was safe throughout stay with no suicidal or parasuicidal behaviors (d) Intent: none (4) RISK LEVEL: Low: modifiable risk factors, strong protective factors; no suicidal or self-injurious ideation. Intervention: treatment plan to reduce symptoms including medications and therapy, provided emergency/crisis numbers, and established follow-up plan for patient to go to walk-in clinic at [facility] immediately following discharge /[id number]
== END 2017-12-15 09:27 | disposition home or self-care (01) | DRG 885 ==
LOC: BBEH 21:04
PROVIDERS: ADMIT Psychiatry & Neurology Behavioral Neurology & Neuropsychiatry; ATTEND Psychiatry & Neurology Behavioral Neurology & Neuropsychiatry
DX: F31.9 Bipolar disorder, unspecified (principal); T43.506A Underdosing of unspecified antipsychotics and neuroleptics, initial encounter; F15.959 Other stimulant use, unspecified with stimulant-induced psychotic disorder, unspecified; F12.99 Cannabis use, unspecified with unspecified cannabis-induced disorder; F17.200 Nicotine dependence, unspecified, uncomplicated; Z72.89 Other problems related to lifestyle; Z59.0 Homelessness
CPT/HCPCS: 82607-90

== ENCOUNTER 2018-01-24 12:38 | Emergency (ER) | payer OTHER, MEDICAID ==
--- NOTE | 2018-01-24 12:50 | EDPHY ---
H & P Stated Complaint: right sided rib pain,hit by dumpster door, difficulty breathing Time Seen by Provider: 01/24/18 12:49 HPI/ROS: HPI: This is a 47-year-old male who presents with Chief Complaint: right sided rib pain,hit by dumpster door, difficulty breathing Location: Right-sided rib Quality: Injury Duration: 1 week ago Signs and Symptoms: no shortness of breath at rest, no shortness of breath on exertion, no cough, no chest pain, no palpitations, no lower extremity edema, no wheezing, no orthopnea, no paroxysmal nocturnal dyspnea, no fever, no injury/ trauma, no hemoptysis, no carpal pedal spasms Timing: Acute, daily Severity: [id number] Context: Patient reports that he was digging in the dumpster 1 week ago when the lid fell on him hitting his forehead and hit right anterior lower ribs. He reports that he felt immediate nonradiating pain. The pain has continued daily and worsens with trying to roll out of bed or coughing. He is a heavy smoker. Denies any shortness of breath, pleuritic chest pain, palpitations. Patient reports that he no longer drinks a gal of vodka daily. He did that in the past when he was "hanging out with the hobos on street." Modifying Factors: None Comment: ROS: A comprehensive 10 system review of systems is otherwise negative aside from elements mentioned in the history of present illness. MEDICAL/SURGICAL/SOCIAL HISTORY: Medical history: RSD, bipolar, [place] 2016, emphysema, hypothyroid, TIA 10/2017, manic depressive, tobacco 1/2 ppd, vodka 1 gallon/day Surgical history: Denies Social history: Heavy smoker. Homeless. Mother lives in a assisted in [place], [place]. Brother lives in [place]. CONSTITUTIONAL: Polite and cooperative, physically fit, middle-aged male who appears older than stated age, awake and alert, no obvious distress HEENT: Atraumatic and normocephalic, PERRL, EOMI. Nares patent; no rhinorrhea; no nasal mucosal edema. Tympanic membranes clear. Oropharynx clear, no exudate and moist pink mucosa. Airway patent. No lymphadenopathy. No meningismus. Cardiovascular: Normal S1/S2, tachycardia, regular rhythm, without murmur rub or gallop. PULMONARY/CHEST: Symmetrical and right anterior lower reproducible rib tenderness. No ecchymosis/crepitus. Clear to auscultation bilaterally. Good air movement. No accessory muscle usage. ABDOMEN: Soft, nondistended, nontender, no rebound, no guarding, no peritoneal signs, no masses or organomegaly. No CVAT. EXTREMITIES: 2/2 pulses, strength 5/5, no deformities, no clubbing, no cyanosis or edema. NEUROLOGICAL: no focal neuro deficits. GCS 15. SKIN: Warm and dry, no erythema. no rash. Tattoos present Good capillary refill. Source: Patient Exam Limitations: No limitations - Personal History Current Tetanus Diphtheria and Acellular Pertussis (TDAP): Yes - Medical/Surgical History Hx Asthma: Yes Hx Chronic Respiratory Disease: Yes Hx Diabetes: Yes Hx Cardiac Disease: Yes Hx Renal Disease: Yes Hx Cirrhosis: No Hx Alcoholism: No Hx HIV/AIDS: No Hx Splenectomy or Spleen Trauma: No Other PMH: RSD, bipolar, [place] 2015, emphysema, hypothryroid, TIA 10/2017, manic depressive, tobacco 1/2 ppd, vodka 1 gallon/day - Social History Smoking Status: Heavy smoker Constitutional: Initial Vital Signs Temperature (C) 36.5 C 01/24/18 12:44 Heart Rate 111 H 01/24/18 12:44 Respiratory Rate 16 01/24/18 12:44 Blood Pressure 117/99 H 01/24/18 12:44 O2 Sat (%) 97 01/24/18 12:44 O2 Delivery Mode Room Air Allergies/Adverse Reactions: clonazepam [From Klonopin] Allergy (Verified 12/11/17 14:03) MOOD CHANGE fluticasone [From Flonase] Allergy (Verified 12/11/17 14:03) SWELLING Home Medications: Medication Instructions Recorded RX: Aspirin EC [Aspirin EC 81 mg 81 mg PO DAILY tab 12/12/17 (*)] RX: Melatonin [Melatonin 3 MG (*)] 3 mg PO HS tab 12/12/17 RX: Multivitamins [Multivitamin 1 each PO DAILY tab 12/12/17 (*)] RX: Omeprazole 20 mg PO BID 12/12/17 RX: Thiamine HCl [Vitamin B-1] 100 mg PO DAILY tab 12/12/17 OLANZapine [Zyprexa] 10 mg PO HS 30 Days #30 tablet 12/15/17 RX: Acetaminophen [Tylenol 325mg 650 mg PO Q4HRS PRN tab 12/15/17 (*)] RX: Atorvastatin Calcium [Lipitor 40 mg PO DAILY 30 Days #30 tab 12/15/17 40 mg (*)] RX: Divalproex ER [Depakote ER 500 1,500 mg PO HS 30 Days #90 tab 12/15/17 MG (*)] RX: Famotidine [Pepcid 20 MG (*)] 20 mg PO BID tab 12/15/17 RX: Levothyroxine [Synthroid 50 50 mcg PO DAILY AT 6AM 30 Days #30 12/15/17 mcg (*)] tab RX: Nicotine [Nicoderm Cq 21 mg 21 mg TD DAILY 30 Days #30 patch 12/15/17 (*)] Flexeril 10 MG (*) 01/24/18 IMITREX 01/24/18 Lidocaine [Lidoderm] 1 each TP Q12 PRN #10 adh..patch 01/24/18 Medical Decision Making - Diagnostics Imaging Results: Imaging Impressions Ribs w/Chest X-Ray 01/24/18 12:50 Impression: 1. Nondisplaced fractures anterolateral right eighth ninth ribs near the costochondral junction. 2. No acute abnormality within the chest. ED Course/Re-evaluation: Vital signs stable upon arrival. No signs of hypoxia/respiratory distress. O2 sats 97% on room air Given Tylenol a 1000 mg, ibuprofen 600 mg, and Lidoderm patch with adequate relief of pain Right rib series and chest x-ray ordered my read via PAC shows no pneumothorax, + nondisplaced 8, 9 rib fractures Given a prescription for Lidoderm patches and advised Tylenol and ibuprofen Case management consult for bus pass. This patient was seen under the supervision of my secondary supervising physician. I evaluated care for this patient independently. Discussed this patient with Dr. Boojrquez. Differential Diagnosis: Differential diagnosis includes but is not limited to rib fracture, pneumothorax , rib contusion, pneumonia. - Data Points Medications Given: Discontinued Medications Acetaminophen (Tylenol) 1,000 mg PO EDNOW ONE Stop: 01/24/18 12:56 Last Admin: 01/24/18 13:21 Dose: 1,000 mg Ibuprofen (Motrin) 800 mg PO EDNOW ONE Stop: 01/24/18 12:56 Last Admin: 01/24/18 13:20 Dose: 800 mg Miscellaneous Medication (Icy Hot Lidocaine/Menthol 4%/1% Patch) 1 patch TD EDNOW ONE Stop: 01/24/18 12:56 Last Admin: 01/24/18 13:21 Dose: 1 patch Departure - Departure Disposition: Home, Routine, Self-Care Clinical Impression: Contusion of rib on right side Qualifiers: Encounter type: initial encounter Qualified Code(s): S20.211A - Contusion of right front wall of thorax, initial encounter Right rib fracture Qualifiers: Encounter type: initial encounter Rib fracture type: multiple ribs Fracture type: closed Qualified Code(s): S22.41XA - Multiple fractures of ribs, right side, initial encounter for closed fracture Nicotine dependence with withdrawal Qualifiers: Nicotine product type: cigarettes Qualified Code(s): F17.213 - Nicotine dependence, cigarettes, with withdrawal Condition: Good Instructions: Rib Fracture (ED), Rib Contusion (ED), How to Use an Incentive Spirometer (ED) Additional Instructions: Take Tylenol 650 mg every 4 hours and/or Ibuprofen 600 mg every 8 hours with food as needed for pain. Apply Lidoderm patch over area of most discomfort. Leave patch on for 12 hr at a time. Remember to take deep breaths every couple hours. Perform incentive spirometry. Please refrain from smoking cigarettes. Return to the ER immediately if you experience new, worsening or continued shortness of breath, or any other symptoms that concern you. Referrals: [facility],. [Clinic] - 5-7 days, if not improved Prescriptions: Lidocaine [Lidoderm] 1 each TP Q12 PRN #10 adh..patch PRN Reason: Pain, Moderate
[2018-01-24] MEDS ORDERED: ACETAMINOPHEN 500 MG TAB PO ONE (12:55)
[2018-01-24] MEDS ORDERED: IBUPROFEN 800 MG TAB PO ONE (12:55)
[2018-01-24] MEDS ORDERED: LIDOCAINE 4%/MENTHOL 1% PATCH TD ONE (12:55)
[2018-01-24 14:07] VITALS: BP 126/73
[2018-01-24] MEDS ORDERED: PATCH REMOVAL 1 EA PATCH TD SCH (21:00)
== END 2018-01-24 14:06 | disposition home or self-care (01) ==
DX: S20.211A Contusion of right front wall of thorax, initial encounter (principal); S22.41XA Multiple fractures of ribs, right side, initial encounter for closed fracture; F17.200 Nicotine dependence, unspecified, uncomplicated; W20.8XXA Other cause of strike by thrown, projected or falling object, initial encounter; Y93.89 Activity, other specified; Y92.89 Other specified places as the place of occurrence of the external cause; F31.9 Bipolar disorder, unspecified; Z59.0 Homelessness

== ENCOUNTER 2018-01-26 10:54 | Emergency (ER) | payer OTHER, MEDICAID ==
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
[2018-01-26] MEDS: OXYCODONE/APAP 5/325 TAB PO ONE (12:06)
[2018-01-26] MEDS: IBUPROFEN 600 MG TAB PO ONE (12:06)
[2018-01-26 12:47] VITALS: BP 110/71
--- NOTE | 2018-01-26 15:49 | ASMTCMCOM ---
CM Note CM Note Notes: Met with patient regarding follow up care and retirement. Patient tells this CM that he is on a list to stay at [facility] in [place], and that he has been to [facility] for primary care and psychiatry. He is out of his prescription medications at this time and would like to have refills for his Zyprexa and Depakote. Patient states that he recently returned to [place] from [place] and he would like to establish permanent housing through [facility] I have contacted Dagoberto at [facility] and confirmed that patient is on a list for a bed at [facility]. Dagoberto explains that patient has been accepted at [facility] in the past but has left, and/or not followed up with services. I have contacted Dayanna at [facility] and confirmed that patient has had appointments scheduled in the past but has been a "no show" and has not rescheduled. I was able to schedule an appointment for patient on January with Dr. Cabello at [address] Lopez at 1100 ([facility]). I have confirmed these appointments with the patient and stressed the importance of "showing up" and getting there on time. Patient has the address and phone number for the clinic and confirms that he knows where the clinic is located Patient was provided a 5 day prescription for his Depakote and his Zyprexa and is aware that he will need to follow up with above scheduled appointments for any further prescriptions. I have reserved a bed for patient for tonight at [facility] and reminded patient that he will need to continue checking in at [facility] regarding his status at the lodge Date Signed: 01/26/2018 03:48 PM Electronically Signed By:Isabella Baires RN
== END 2018-01-26 13:20 | disposition home or self-care (01) ==
DX: S83.92XA Sprain of unspecified site of left knee, initial encounter (principal); S20.211A Contusion of right front wall of thorax, initial encounter; V18.0XXA Pedal cycle driver injured in noncollision transport accident in nontraffic accident, initial encounter; Y93.55 Activity, bike riding

== ENCOUNTER 2018-04-11 09:05 | Emergency (ER) | payer MEDICAID, OTHER ==
[2018-04-11 09:10] VITALS: BP 137/100
--- NOTE | 2018-04-11 09:18 | EDPHY ---
H & P Stated Complaint: R forearm pain since this am--no known trauma Source: Patient, Old records Exam Limitations: No limitations - Medical/Surgical History Hx Asthma: No Hx Chronic Respiratory Disease: Yes Hx Diabetes: No Hx Cardiac Disease: No Hx Renal Disease: No Hx Cirrhosis: No Hx Alcoholism: No Hx HIV/AIDS: No Hx Splenectomy or Spleen Trauma: No Other PMH: bipolar, OR 2016, emphysema, hypothryroid, TIA 10/2017, manic depressive. - Social History Smoking Status: Current every day smoker Time Seen by Provider: 04/11/18 09:15 HPI/ROS: HPI: This is a 47-year-old male who presents with Chief Complaint: R forearm pain since this am--no known trauma Location: Right forearm Quality: Pain Duration: 30 min to 1 hr prior to arrival Signs and Symptoms: No bleeding, no radiation, no numbness, no weakness, no tingling, no incontinence, no decreased range of motion, no swelling, + pain, no fever Timing: Acute, constant Severity: 09/10 Context: Patient is right-hand dominant, presents with waking up this morning with right forearm pain and tenderness to touch on the radial aspect but does not remember any trauma or injury. Patient reports that he had a migraine headache yesterday and does not remember much of the day. He did sleep most the day and his car. His mom woke him up this morning as he was sleeping in his car in the driveway of her house. Patient denies any radiation, decreased range of motion, skin color changes. Patient is a poor historian. Denies LOC/ head injury/neck pain/dizziness/nausea/vomiting/amnesia. Patient reports that he has been doing well and has not been using illegal substances. He is currently waiting for a bed at [facility]. Modifying Factors: None Comment: ROS: A comprehensive 10 system review of systems is otherwise negative aside from elements mentioned in the history of present illness. MEDICAL/SURGICAL/SOCIAL HISTORY: Medical history: bipolar, OR 2016, emphysema, hypothyroidism, TIA 10/2017, manic depressive. Surgical history: Denies Social history: Homeless. Current every day smoker. CONSTITUTIONAL: Well-developed, well-nourished, polite and cooperative, middle- aged male, wearing beanie, awake and alert, no obvious distress HEENT: Atraumatic and normocephalic. NECK: supple EXTREMITIES: 2/2 pulses, strength 5/5, right forearm shows prominence in the muscle structure on the dorsal radial aspect but no obvious deformity/skin color changes including no redness, warmth, drainage. Mild tenderness to palpation over the flexor radialis muscle. Right ELBOW: Full extension to 180 , flexion to 150, no tenderness over medial epicondyle, no tenderness over lateral epicondyle, no effusion. Right WRIST: Extension to 70, flexion to 80 , radial deviation to 20 degree, ulnar deviation to 30, no scaphoid tenderness , no tenderness over ulnar styloid, no tenderness over radial styloid. DIP/PIP/ MCP flexion/extension intact with good light touch sensation. no deformities, no clubbing, no cyanosis or edema. NEUROLOGICAL: no focal neuro deficits. GCS 15. Light touch sensation intact. SKIN: Warm and dry, no erythema. no rash. Good capillary refill. (Vika Bunch) Constitutional: Initial Vital Signs Temperature (C) 36.7 C 04/11/18 09:07 Heart Rate 91 04/11/18 09:07 Respiratory Rate 18 04/11/18 09:07 Blood Pressure 137/100 H 04/11/18 09:07 O2 Sat (%) 94 04/11/18 09:07 O2 Delivery Mode Room Air Allergies/Adverse Reactions: clonazepam [From Klonopin] Allergy (Verified 12/11/17 14:03) MOOD CHANGE fluticasone [From Flonase] Allergy (Verified 12/11/17 14:03) SWELLING Home Medications: Medication Instructions Recorded Aspirin EC [Aspirin EC 81 mg (*)] 81 mg PO DAILY tab 12/12/17 Melatonin [Melatonin 3 MG (*)] 3 mg PO HS tab 12/12/17 Multivitamins [Multivitamin (*)] 1 each PO DAILY tab 12/12/17 Omeprazole 20 mg PO BID 12/12/17 Thiamine HCl [Vitamin B-1] 100 mg PO DAILY tab 12/12/17 Acetaminophen [Tylenol 325mg (*)] 650 mg PO Q4HRS PRN tab 12/15/17 Atorvastatin Calcium [Lipitor 40 40 mg PO DAILY 30 Days #30 tab 12/15/17 mg (*)] Divalproex ER [Depakote ER 500 MG 1,500 mg PO HS 30 Days #90 tab 12/15/17 (*)] Famotidine [Pepcid 20 MG (*)] 20 mg PO BID tab 12/15/17 Levothyroxine [Synthroid 50 mcg 50 mcg PO DAILY AT 6AM 30 Days #30 12/15/17 (*)] tab Nicotine [Nicoderm Cq 21 mg (*)] 21 mg TD DAILY 30 Days #30 patch 12/15/17 OLANZapine [Zyprexa] 10 mg PO HS 30 Days #30 tablet 12/15/17 Flexeril 10 MG (*) 01/24/18 IMITREX 01/24/18 Lidocaine [Lidoderm] 1 each TP Q12 PRN #10 adh..patch 01/24/18 Divalproex ER [Depakote ER 500 MG 500 mg PO HS #5 tab 01/26/18 (*)] Escitalopram Oxalate [Lexapro] 10 mg PO HS #10 tab 01/26/18 Ibuprofen 600 mg PO Q8 PRN #15 tablet 01/26/18 Medical Decision Making - Diagnostics Imaging Results: Imaging Impressions Forearm X-Ray 04/11/18 09:19 Impression: 1. Mild negative ulnar variance at the wrist. Normal right forearm study otherwise. Procedures: Procedure: Splint placement. A right sling was applied. After application of the splint I returned and re- examined the patient. The splint was adequately immobilizing the joint and distal to the splint the patient's circulation and sensation was intact. (Vika Bunch) ED Course/Re-evaluation: Vital signs reviewed and stable upon arrival. Patient given Tylenol 1000 mg and ice pack applied Right forearm x-ray ordered and my read via PAC shows no fracture, dislocation, soft tissue swelling. I suspect a muscle strain may be from sleeping on it or from unknown injury yesterday. Will placed in a sling for comfort, supportive care, orthopedic follow-up as needed No signs of neurovascular compromise/tenting of skin/compartment syndrome/ extremities and joints examined above and below area of concern and are neurovascularly intact/cellulitis. This patient was seen under the supervision of my secondary supervising physician. I evaluated care for this patient independently. Discussed this patient with Dr. Cross who did not see the patient. (Vika Bunch) I did not see this patient while he was in the emergency department. However his care was discussed with the PA while the patient was in the department. I agree with treatment plan and management (Stephen Cross) Differential Diagnosis: Differential diagnosis includes but is not limited to radial fracture, ulnar fracture, muscle strain, nerve injury. (Vika Bunch) - Data Points Medications Given: Discontinued Medications Acetaminophen (Tylenol) 1,000 mg PO EDNOW ONE Stop: 04/11/18 09:20 Last Admin: 04/11/18 09:42 Dose: 1,000 mg Departure - Departure Disposition: Home, Routine, Self-Care Clinical Impression: Muscle strain of right forearm Qualifiers: Encounter type: initial encounter Qualified Code(s): S56.911A - Strain of unspecified muscles, fascia and tendons at forearm level, right arm, initial encounter Condition: Good Instructions: Muscle Strain (ED) Additional Instructions: Wear the sling while out of bed until pain free. Take Tylenol 650 mg every 4 hours and/or Ibuprofen 600 mg every 8 hours with food as needed for pain. Apply ice for 30 minutes at a time; 2-3 times per day for the next 1-2 days. [facility] at which time they will evaluate and recommend with you if conservative management versus further imaging is indicated. The x-rays obtained in the emergency department today demonstrate no evidence of an obvious fracture. Referrals: [facility],. [Clinic] - 3-4 days, if not improved
[2018-04-11] MEDS ORDERED: ACETAMINOPHEN 500 MG TAB PO ONE (09:19)
--- NOTE | 2018-04-11 10:19 | ASMTCMCOM ---
CM Note CM Note Notes: Met with patient prior to discharge from the ED regarding follow up at [facility]. See prior CM note from 01/28/18. Patient states that he was at [facility] yesterday for an appointment with Dr. Lopez (psychiatry) prior to his "migraine" starting. He is not certain of his last PCP visit at [facility]. This CM contacted Dayanna at [facility] and confirmed that she did see patient at the clinic yesterday. This CM scheduled an ED follow up visit for patient with Komal CALDERON ([facility]) for , April 19 at 1045. Unfortunately, patient was discharged before I was able to inform him of appointment time. Patient does not have up to date contact information (phone) and I was unable to leave him a message regarding appointment. Dayanna ([facility]) aware that patient is unaware of appointment. She will leave appointment scheduled and is confident that she will see patient at the clinic in time to inform him of appointment. ED report and CM note faxed to [facility] Date Signed: 04/11/2018 10:19 AM Electronically Signed By:Isabella Baires RN
== END 2018-04-11 10:06 | disposition home or self-care (01) ==
DX: S59.911A Unspecified injury of right forearm, initial encounter (principal); X50.9XXA Other and unspecified overexertion or strenuous movements or postures, initial encounter; Y92.9 Unspecified place or not applicable; Y93.9 Activity, unspecified; Y99.9 Unspecified external cause status
CPT/HCPCS: 73090; 99283; A4565